=== PATIENT | male | born 1950 | race Caucasian/White ===

== ENCOUNTER → 2022-12-23 | Outpatient (CLI) | payer MEDICARE, BC ==
[2022-12-23 15:54] LABS: PLATELET COUNT, AUTOMATED 277 10^3/uL (150-450)
[2022-12-23 16:13] LABS: INR 1.03; PROTHROMBIN TIME 13.2 SECONDS (12.5-14.5)
[2022-12-23 16:14] LABS: PARTIAL THROMBOPLASTIN TIME 26.1 SECONDS (24.8-34.2)
== END ==
LOC: M PLALAB 14:42
PROVIDERS: ATTEND Physical Medicine & Rehabilitation
DX: Z01.818 Encounter for other preprocedural examination (principal)